=== PATIENT | female | born 1955 | race Caucasian/White ===

== ENCOUNTER 2017-09-19 10:21 | Emergency (ER) | payer BC ==
[2017-09-19 11:16] VITALS: BP 128/64
--- NOTE | 2017-09-19 12:03 | UC ---
Back Pain HPI - HPI Summary HPI Summary: Pt presents with low back and tailbone bone s/p falling last night. She was going down her steps and slipped on the ice. Her feet went out from underneath her and she landed on her tailbone. She did not hit her head. She does have a hx of sciatica, but no specific injury. She has not taken anything for the pain because she wanted to make sure nothing was wrong first. Denies fever, chills, SOB, chest pain, abdominal pain, N/V/D/C, dysuria, numbness, tingling, radiation of pain, bowel or bladder dysfunction. - History of Current Complaint Hx Obtained From: Patient Onset/Duration: Sudden Onset Timing: Constant Severity Initially: Severe Severity Currently: Severe Pain Intensity: 9 Pain Scale Used: 0-10 Numeric Character: Dull, Aching, Throbbing Aggravating Factor(s): Movement, Walking Alleviating Factor(s): Rest, Position <Peter Alexander - Last Filed: 09/19/17 13:40> <Yue Hernandez - Last Filed: 09/19/17 13:50> - History of Current Complaint Chief Complaint: UCBackPain Stated Complaint: FALL Time Seen by Provider: 09/19/17 11:39 - Allergies/Home Medications Allergies/Adverse Reactions: Allergies Allergy/AdvReac Type Severity Reaction Status Date / Time No Known Allergies Allergy Verified 09/19/17 11:09 PMH/Surg Hx/FS Hx/Imm Hx Endocrine History: Dyslipidemia Cardiovascular History: Hypertension - Surgical History Surgical History: None - Social History Occupation: Retired Lives: With Family Alcohol Use: Occasionally Substance Use Type: None Smoking Status (MU): Heavy Every Day Tobacco Smoker Type: Cigarettes Amount Used/How Often: 12 CIGS/DAY Length of Time of Smoking/Using Tobacco: 40+ YRS Cessation Counseling: Counseled 3+Min - 10 Min <Peter Alexander - Last Filed: 09/19/17 13:40> Review of Systems Constitutional: Negative Skin: Negative Respiratory: Negative Cardiovascular: Negative Gastrointestinal: Negative Genitourinary: Negative Musculoskeletal: Other: - LBP Neurological: Negative Psychological: Negative All Other Systems Reviewed And Are Negative: Yes <Peter Alexander - Last Filed: 09/19/17 13:40> Physical Exam Triage Information Reviewed: Yes Appearance: Well-Appearing, No Pain Distress, Well-Nourished Vital Signs: Initial Vital Signs Temp 98 F 09/19/17 11:11 Pulse 81 09/19/17 11:11 Resp 16 09/19/17 11:11 BP 128/64 09/19/17 11:11 Pulse Ox 98 09/19/17 11:11 Vital Signs Reviewed: Yes Neck: Positive: Supple, No Lymphadenopathy, Other: - NTTP. FROM Respiratory: Positive: Chest non-tender, Lungs clear, Normal breath sounds Cardiovascular: Positive: RRR, No Murmur, Pulses Normal, Brisk Capillary Refill Abdomen Description: Positive: Nontender, No Organomegaly, Soft. Negative: CVA Tenderness (R), CVA Tenderness (L), Distended, Guarding, Peritoneal Signs Bowel Sounds: Positive: Present Musculoskeletal: Positive: Strength Intact - B/L LEs, ROM Intact - B/L LEs including dorsiflexion and plantar flexion, No Edema, Other: - TTP over coccyx. No obvious bony deformities. Negative SLR. Negative JANAE. No hip pain. Neurological: Positive: Alert, Other: - Sensations intact L3-S1 b/l LEs. Reflexes b/l LEs intact. Psychological: Positive: Age Appropriate Behavior Skin: Positive: Other - No ecchymosis.. Negative: rashes <Peter Alexander - Last Filed: 09/19/17 13:40> Vital Signs: Initial Vital Signs Temp 98 F 09/19/17 11:11 Pulse 81 09/19/17 11:11 Resp 16 09/19/17 11:11 BP 128/64 09/19/17 11:11 Pulse Ox 98 09/19/17 11:11 <Yue Hernandez - Last Filed: 09/19/17 13:50> Back Pain Course/Dx - Course Course Of Treatment: Lumbar/Sacrum/Coccyx XR: No traumatic injury of the lumbar sacral spine or sacrum or coccyx. 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 Advised to take tylenol/ibuprofen for pain and discomfort. May try a donut pillow when seated for added comfort. Rest with ice alternating with heat and advance activities as tolerated. - Differential Dx/Diagnosis Differential Diagnosis/HQI/PQRI: Cauda Equina Syndrome, Fracture, Herniated Disc , Strain, Sprain Provider Diagnoses: Coccyx pain s/p fall <Peter Alexander - Last Filed: 09/19/17 13:40> Discharge <Peter Alexander - Last Filed: 09/19/17 13:40> <Yue Hernandez - Last Filed: 09/19/17 13:50> - Discharge Plan Condition: Stable Disposition: HOME Patient Education Materials: Back Pain (ED) Referrals: Andrew Jones MD [Primary Care Provider] - Additional Instructions: If you develop a fever, shortness of breath, chest pain, new or worsening symptoms - please call your PCP or go to the ED. 1) Ice/Heat to the area as tolerated. May take OTC tylenol or ibuprofen for pain or discomfort. 2) If you develop any new symptoms such as numbness, tingling, or change in bowel/bladder function - please go to the ED. Attestation Statement User Type: Provider - I was available for consult. This patient was seen by the GIANCARLO. The patient was not presented to, seen by, or examined by me. -Rod <Yue Hernandez - Last Filed: 09/19/17 13:50>
--- NOTE | 2017-09-19 12:22 | RAD ---
Indication: Low back and tailbone pain post fall last night. Comparison: No relevant prior exams available on the [facility] PACS for comparison. Technique: AP, lateral, and oblique views lumbar sacral spine and AP and lateral views of the sacrum and coccyx. Report: Alignment is anatomic. No cortical disruption or trabecular impaction to indicate a vertebral body fracture. Oblique views without evidence for spondylolysis. Multilevel degenerative spondylosis and facet joint osteoarthritis. Disc space narrowing is most prominent at L4 -- fibroid is moderately severe with associated reactive endplate sclerosis. Facet joint osteoarthritis is most severe at L4-L5 and L5-S1. Unremarkable soft tissue contours. No fracture of the sacrum or coccyx evident. Unremarkable presacral soft tissue contours. IMPRESSION: No traumatic injury of the lumbar sacral spine or sacrum or coccyx. 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
--- NOTE | 2017-09-19 12:22 | RAD ---
Indication: Low back and tailbone pain post fall last night. Comparison: No relevant prior exams available on the [facility] [place] for [place]. Technique: AP, lateral, and oblique views lumbar sacral spine and AP and lateral views of the sacrum and coccyx. Report: Alignment is anatomic. No cortical disruption or trabecular impaction to indicate a vertebral body fracture. Oblique views without evidence for spondylolysis. Multilevel degenerative spondylosis and facet joint osteoarthritis. Disc space narrowing is most prominent at L4 -- fibroid is moderately severe with associated reactive endplate sclerosis. Facet joint osteoarthritis is most severe at L4-L5 and L5-S1. Unremarkable soft tissue contours. No fracture of the sacrum or coccyx evident. Unremarkable presacral soft tissue contours. IMPRESSION: No traumatic injury of the lumbar sacral spine or sacrum or coccyx. 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
== END 2017-09-19 12:40 | disposition home or self-care (01) ==
LOC: UCEAST 10:21
DX: M53.3 Sacrococcygeal disorders, not elsewhere classified (principal); E78.5 Hyperlipidemia, unspecified; I10 Essential (primary) hypertension; Z71.6 Tobacco abuse counseling; F17.210 Nicotine dependence, cigarettes, uncomplicated
CPT/HCPCS: 72110; 72220; 99211; G0463

== ENCOUNTER 2023-04-13 23:36 | Observation (INO) ==
[2023-04-14 00:35] LABS: ABS Basophils 0.1 10^3/uL (0.0-0.1); ABS Eosinophils 0.2 10^3/uL (0.0-0.5); ABS Lymphocytes 2.5 10^3/uL (1.0-4.8); ABS Monocytes 0.6 10^3/uL (0.0-0.9); ABS Neutrophils 3.8 10^3/uL (1.5-7.6); ABS Nucleated RBC 0.02 10^3/ul; Eosinophil % 3.1 %; Hematocrit 41.2 % (35-45); Hemoglobin 14.4 g/dL (11.5-14.3); Lymphocyte % 34.1 %; Mean Corpuscular Hemoglobin 29.5 pg (27-33); Mean Corpuscular Volume 84.1 fL (80-97); Mean Platelet Volume 7.7 fL (7.5-11.2); Nucleated Red Blood Cells % 0.2 /100 WBC (0.0-0.4); Platelet Count 217 10^3/uL (150-450); Red Cell Distribution Width 13.2 % (12-17); White Blood Count 7.2 10^3/uL (3.8-11.8)
[2023-04-14 00:53] LABS: Albumin 4.8 g/dL (3.2-5.2); Albumin/Globulin Ratio 1.9 (1-3); Calcium 10.1 mg/dL (8.6-10.3); Creatinine, Serum 0.77 mg/dL (0.51-0.95); Globulin 2.5 g/dL (2-4); Magnesium 1.9 mg/dL (1.9-2.7); Potassium 3.9 mmol/L (3.5-5.0); Total Bilirubin 0.3 mg/dL (0.2-1.0); Total Protein 7.3 g/dL (6.4-8.9); eGFR CKD-EPI 83.5 (>60)
[2023-04-14 02:14] LABS: High Sensitivity Troponin 1 Hr 3 pg/mL (<15)
[2023-04-14] MEDS ORDERED: Lactated Ringers SEPSIS* BAG 1,770 ML IV ONE (02:14)
[2023-04-14 03:34] LABS: Prolactin 5.1 ng/mL (1.0-25.0)
[2023-04-14 03:48] LABS: Urine Appearance Clear; Urine Bilirubin Negative (Negative); Urine Blood Negative (Negative); Urine Color Colorless; Urine Glucose 3+(>=500 mg/dL) (Negative); Urine Ketones Negative (Negative); Urine Nitrite Negative (Negative); Urine Protein Negative (Negative); Urine Specific Gravity 1.002 (1.002-1.030); Urine Urobilinogen Negative (Negative)
[2023-04-14 04:31] LABS: Urine Benzodiazepine Screen None Detected (None Detect); Urine Cannabinoids Screen None Detected (None Detect); Urine Opiates Screen None Detected (None Detect)
[2023-04-14] MEDS ORDERED: NS 0.9% 1000 ml BAG 1,000 ML IV ONE (05:30)
[2023-04-14] MEDS ORDERED: Dextrose 50% Syringe 50 ml 25 GM/50 ML SYRINGE IV PUSH PRN (13:50)
[2023-04-14 15:10] LABS: TSH Ultra Thyroid Stim Horm 2.12 mcIU/mL (0.34-5.60)
[2023-04-14 15:15] LABS: Free T4 1.02 ng/dL (0.61-1.12)
[2023-04-14 15:43] VITALS: BP 126/85
[2023-04-15] MEDS ORDERED: Aspirin EC 81 mg TAB.EC (enteric coated) PO SCH (09:00)
[2023-04-15] MEDS ORDERED: LIXISENATIDE SUBCUT SCH (13:00)
[2023-04-15] MEDS ORDERED: INSULIN GLARGINE SUBCUT SCH (13:00)
== END 2023-04-14 16:06 | disposition home or self-care (01) ==
LOC: ED 23:36 → EDHOLD 23:36 → MEDTELE 04-14 15:05 → EDHOLD 04-14 15:24
PROVIDERS: ADMIT Internal Medicine; ATTEND Internal Medicine